=== PATIENT | born 1960 ===

== ENCOUNTER → 2017-08-24 12:37 | Outpatient (CLI) | payer SELFPAY ==
[2017-08-25 10:06] LABS: Osmolality, Urine 382 mOsm/KG
[2017-08-25 10:15] LABS: Urine Calcium (Random) 35.8 (Not Estab.); Urine Protein (24 Hour) 84.8 mg/dL (<11.9)
[2017-08-25 10:19] LABS: Microalbumin,Random Urine 17.4 mg/L (NO RANGE EST.); Microalbumin:Creatinine Ratio 18.2 mg/g CRE (<30 mg/g CRE); Urea Nitrogen, Urine 756 mg/dL (NO RANGE EST.); Urine Chloride 27 mmol/L (Not Establ.); Urine Sodium 33 mmol/L (Not Establ.)
[2017-08-27 11:52] LABS: Urine Calcium (Random) 13.5 (Not Estab.); Urine Protein (24 Hour) 11.8 mg/dL (<11.9)
[2017-08-27 12:29] LABS: Microalbumin,Random Urine 39.8 mg/L (NO RANGE EST.); Microalbumin:Creatinine Ratio 29.3 mg/g CRE (<30 mg/g CRE); Urea Nitrogen, Urine 873 mg/dL (NO RANGE EST.); Urine Chloride 32 mmol/L (Not Establ.); Urine Sodium 47 mmol/L (Not Establ.)
[2017-08-27 12:37] LABS: Osmolality, Urine 201 mOsm/KG
[2017-08-27 15:56] LABS: Osmolality, Urine 227 mOsm/KG
[2017-08-27 16:08] LABS: Urine Calcium (Random) 21.4 (Not Estab.); Urine Protein (24 Hour) 96.5 mg/dL (<11.9)
[2017-08-27 16:26] LABS: Microalbumin:Creatinine Ratio 1796.6 mg/g CRE (<30 mg/g CRE); Urea Nitrogen, Urine 561 mg/dL (NO RANGE EST.); Urine Chloride 24 mmol/L (Not Establ.); Urine Sodium 40 mmol/L (Not Establ.)
== END ==
PROVIDERS: PCP Pathology Anatomic Pathology & Clinical Pathology; Visit Provider Pathology Anatomic Pathology & Clinical Pathology
DX: Z00.00 Encounter for general adult medical examination without abnormal findings (principal)